=== PATIENT | female | born 1985 | race Caucasian/White ===

== ENCOUNTER 2019-10-08 06:22 | Observation (INO) | payer OTHER ==
[2019-10-08 07:55] VITALS: BP 120/76; PULSE 81
--- NOTE | 2019-10-08 09:25 | XRAY ---
Indication: Evaluate JAMIN. Limited OB ultrasound demonstrates a single viable intrauterine in cephalic presentation with heart rate 144 BPM. Four-quadrant JAMIN is 15.6 cm, previously 11.1 cm on September 20, 2019.
== END 2019-10-08 08:20 | disposition home or self-care (01) ==
LOC: OB 06:22
PROVIDERS: ADMIT Family Medicine; ATTEND Family Medicine
DX: Z34.83 Encounter for supervision of other normal pregnancy, third trimester (principal)
CPT/HCPCS: 59025; 76815; G0378

== ENCOUNTER 2019-10-11 15:18 | Observation (INO) | payer OTHER ==
[2019-10-11 16:03] VITALS: BP 133/76; PULSE 86; O2SAT 96
== END 2019-10-11 16:10 | disposition home or self-care (01) ==
LOC: OB 15:18
PROVIDERS: ADMIT Family Medicine; ATTEND Family Medicine
DX: Z34.83 Encounter for supervision of other normal pregnancy, third trimester (principal)
CPT/HCPCS: 59025; G0378

== ENCOUNTER 2019-10-15 06:39 | Observation (INO) | payer OTHER ==
[2019-10-15 07:57] VITALS: BP 132/79; PULSE 73; O2SAT 95
--- NOTE | 2019-10-15 09:16 | XRAY ---
Indication: Evaluate JAMIN. Limited OB ultrasound demonstrates single viable intrauterine with heart rates 124 BPM. Four-quadrant JAMIN is 11.7 cm, previously 15.6 cm on October 08, 2019.
== END 2019-10-15 08:30 | disposition home or self-care (01) ==
LOC: OB 06:39
PROVIDERS: ADMIT Family Medicine; ATTEND Family Medicine
DX: Z34.83 Encounter for supervision of other normal pregnancy, third trimester (principal)
CPT/HCPCS: 59025; 76815; G0378

== ENCOUNTER 2019-10-19 09:06 | Observation (INO) | payer OTHER ==
[2019-10-19 10:02] VITALS: BP 125/78; PULSE 77
== END 2019-10-19 09:50 | disposition home or self-care (01) ==
LOC: OB 09:06
PROVIDERS: ADMIT Family Medicine; ATTEND Family Medicine
DX: Z34.83 Encounter for supervision of other normal pregnancy, third trimester (principal)
CPT/HCPCS: 59025; G0378

== ENCOUNTER 2019-10-22 06:42 | Observation (INO) | payer OTHER ==
[2019-10-22 08:02] VITALS: BP 131/80; PULSE 84
--- NOTE | 2019-10-22 09:26 | XRAY ---
Indication: Evaluate JAMIN. Limited OB ultrasound demonstrates single viable intrauterine with heart rate 150 bpm. Four-quadrant JAMIN is 15.3 cm, previously 11.7 cm on October 15, 2019.
== END 2019-10-22 08:15 | disposition home or self-care (01) ==
LOC: OB 06:42
PROVIDERS: ADMIT Family Medicine; ATTEND Family Medicine
DX: Z34.83 Encounter for supervision of other normal pregnancy, third trimester (principal)
CPT/HCPCS: 59025; 76815; G0378

== ENCOUNTER 2019-10-24 16:06 | Observation (INO) | payer OTHER ==
[2019-10-24 16:31] VITALS: PULSE 96
[2019-10-24 17:19] VITALS: BP 127/79
== END 2019-10-24 16:55 | disposition home or self-care (01) ==
LOC: OB 16:06
PROVIDERS: ADMIT Family Medicine; ATTEND Family Medicine
DX: Z34.83 Encounter for supervision of other normal pregnancy, third trimester (principal)
CPT/HCPCS: 59025; G0378

== ENCOUNTER 2019-10-27 13:48 | Observation (INO) | payer OTHER ==
[2019-10-27 14:34] VITALS: PULSE 76
[2019-10-27 15:25] LABS: ALBUMIN 3.5 g/dL (3.5-5.0); ALKALINE PHOSPHATASE 101 U/L (38-126); ANION GAP 10.6 MEQ/L (5-15); Absolute Neutrophil Ct (ANC) 7.83 (1.4-6.9); BLOOD UREA NITROGEN 10 mg/dL (7-17); Basophil (Absolute #) 0 (0-0.4); CHLORIDE 110 mmol/L (98-107); Calcium 9.2 mg/dL (8.4-10.2); Carbon Dioxide 18 mmol/L (22-30); Creatinine 1 0.51 mg/dL (0.52-1.04); Eosinophil % 0.5 % (0.00-5.0); Eosinophil (Absolute #) 0.05 (0-0.5); Glucose 96 mg/dL (74-106); Hemoglobin 11.7 gm/dl (12.0-16.0); Lymphocyte (Absolute #) 1.76 (1.0-4.6); Lymphocytes % 17.1 % (24.0-44.0); Mean Cell Volume 91.4 fl (78-100); Mean Corpuscular Hemoglobin 30.5 pg (26-32); Mean Corpuscular Hgb Concent. 33.4 g/dl (32-36); Mean Platelet Volume 9.2 fl (7.5-11.0); Monocyte (Absolute #) 0.68 (0.0-1.3); Monocytes % 6.6 % (0.0-12.0); Neutrophil % 75.8 % (36.0-66.0); Platelet Count 274 K/mm3 (150-450); Potassium 3.8 mmol/L (3.5-5.1); Red Blood Count 3.83 M/mm3 (4.1-5.4); Red Cell Distribution Width 13.3 % (11.5-14.0); SGOT/AST 21 U/L (14-36); SGPT/ALT 15 U/L (0-35); SODIUM 135 mmol/L (137-145); Total Protein 6.5 g/dL (6.3-8.2); White Blood Count 10.3 K/mm3 (4.0-10.5)
[2019-10-27 15:31] LABS: Appearance SLIGHTLY CLOUDY (CLEAR); Bacteria RARE /HPF (NEGATIVE); Bilirubin NEGATIVE (NEGATIVE); Blood NEGATIVE Ery/ul (0-5); Epithelial Cells RARE /HPF (FEW); Glucose NEGATIVE (NEGATIVE); Ketones NEGATIVE (NEGATIVE); Leukocyte Esterase SMALL (NEGATIVE); Mucus SLIGHT /HPF (NEGATIVE); Nitrite NEGATIVE (NEGATIVE); Protein,Urine Dip NEGATIVE (Negative); Specific Gravity 1.019 (1.005-1.025); Urobilinogen 4 mg/dL (0-1)
[2019-10-27 15:34] LABS: Creatinine, Urine Random 114.2 mg/dl (30-125)
== END 2019-10-27 16:00 | disposition home or self-care (01) ==
LOC: OB 13:48
PROVIDERS: ADMIT Family Medicine; ATTEND Family Medicine
DX: Z34.83 Encounter for supervision of other normal pregnancy, third trimester (principal)
CPT/HCPCS: 36415; 59025; 80053; 81001; 82570; 84156; 85025; G0378

== ENCOUNTER 2019-10-29 06:56 | Observation (INO) | payer OTHER ==
[2019-10-29 07:50] VITALS: O2SAT 99
[2019-10-29 08:14] VITALS: BP 127/78; PULSE 82
--- NOTE | 2019-10-29 09:15 | XRAY ---
Indication: Evaluate JAMIN. Limited OB ultrasound demonstrates single viable intrauterine with heart rate 140 BPM. Four-quadrant JAMIN is 19.4 cm, previously 15.3 cm on October 22, 2019.
== END 2019-10-29 08:00 | disposition home or self-care (01) ==
LOC: OB 06:56
PROVIDERS: ADMIT Family Medicine; ATTEND Family Medicine
DX: Z34.83 Encounter for supervision of other normal pregnancy, third trimester (principal)
CPT/HCPCS: 59025; 76816; G0378

== ENCOUNTER 2019-10-31 16:52 | Observation (INO) | payer OTHER ==
[2019-10-31 18:54] VITALS: BP 133/82; PULSE 84; O2SAT 96
== END 2019-10-31 17:50 | disposition home or self-care (01) ==
LOC: OB 16:52
PROVIDERS: ADMIT Family Medicine; ATTEND Family Medicine
DX: Z34.83 Encounter for supervision of other normal pregnancy, third trimester (principal)
CPT/HCPCS: 59025; G0378

== ENCOUNTER 2019-11-05 06:20 | Observation (INO) | payer OTHER ==
--- NOTE | 2019-11-05 08:14 | XRAY ---
Exam: Limited OB ultrasound follow-up for JAMIN check from 11/05/2019. Comparison: Limited OB ultrasound from 10/29/2019. Indication: Evaluate JAMIN. Findings: Limited OB ultrasound demonstrates a single live intrauterine fetus in the cephalic lie which demonstrates a heart rate of 138 bpm. 4 quadrant JAMIN is 21.96 cm, previously 19.4 cm on 10/29/2019. The 95th percentile for amniotic fluid index for a 36 week old fetus is 24.9 cm. Correlate clinically. Impression: 1. As above.
[2019-11-05 08:15] VITALS: BP 135/80; PULSE 79
== END 2019-11-05 08:05 | disposition home or self-care (01) ==
LOC: OB 06:20
PROVIDERS: ADMIT Family Medicine; ATTEND Family Medicine
DX: Z34.83 Encounter for supervision of other normal pregnancy, third trimester (principal)
CPT/HCPCS: 59025; 76815; G0378

== ENCOUNTER 2019-11-07 06:11 | Observation (INO) | payer OTHER ==
--- NOTE | 2019-11-07 15:04 | XRAY ---
Indication: High-risk . Two-dimensional OB ultrasound performed. Comparison: September 20, 2019. Again there is a single viable intrauterine in cephalic presentation. heart rate 176 BPM. Again anterior placenta without abruption/previa. BPD measures 9.34 cm corresponding to 38 weeks 0 days. HC measures 33.64 cm corresponding to 38 weeks 4 days. AC measures 35.02 cm corresponding to 38 weeks 6 days. FL measures 7.42 cm corresponding to 38 weeks 0 days. Estimated weight 7 lbs. 12 oz., +/-1 lb. 3 oz. Approximately 95th percentile. JAMIN is 13.7 cm. Impression: Again single viable intrauterine with mean gestational age 38 weeks 3 days. There has been progression in the . Fetus now measures 9 days larger with respect to the comparison exam and 13 days larger with respect to first exam April 09, 2019.
[2019-11-07 15:11] VITALS: BP 138/86; PULSE 87
== END 2019-11-07 15:40 | disposition home or self-care (01) ==
LOC: EDSTATUS 13:52 → OB 13:57
PROVIDERS: ADMIT Family Medicine; ATTEND Family Medicine
DX: O09.92 Supervision of high risk pregnancy, unspecified, second trimester (principal); Z3A.36 36 weeks gestation of pregnancy
CPT/HCPCS: 59025; 76816; 87081; G0378

== ENCOUNTER 2019-11-11 03:00 | Inpatient (IN) | payer OTHER ==
[2019-11-11] MEDS ORDERED: Cervidil 10 MG VAG SCH (18:00)
[2019-11-11] MEDS ORDERED: XYLOCAINE 1% HCL 20 ML MDV IJ PRN (20:11)
[2019-11-11] MEDS ORDERED: Zofran 4 MG/2 ML VIAL IV PRN (20:11)
[2019-11-11] MEDS ORDERED: TYLENOL EXTRA STRENGTH 500 MG PO PRN (20:11)
[2019-11-11] MEDS ORDERED: OB EPIDURAL NAROPIN/SUFENTANIL IN NACL EPIDURAL PRN (20:30)
[2019-11-11 20:31] LABS: Absolute Neutrophil Ct (ANC) 8.48 (1.4-6.9); BASOPHIL % 0.1 % (0.0-0.4); Basophil (Absolute #) 0.01 (0-0.4); Eosinophil % 0.4 % (0.00-5.0); Eosinophil (Absolute #) 0.05 (0-0.5); Hematocrit 34.1 % (35-47); Hemoglobin 11.6 gm/dl (12.0-16.0); Lymphocyte (Absolute #) 2.22 (1.0-4.6); Mean Cell Volume 90.5 fl (78-100); Mean Corpuscular Hemoglobin 30.8 pg (26-32); Mean Platelet Volume 9.8 fl (7.5-11.0); Monocyte (Absolute #) 0.92 (0.0-1.3); Monocytes % 7.9 % (0.0-12.0); Neutrophil % 72.6 % (36.0-66.0); Platelet Count 303 K/mm3 (150-450); Red Blood Count 3.77 M/mm3 (4.1-5.4); Red Cell Distribution Width 13.7 % (11.5-14.0); White Blood Count 11.7 K/mm3 (4.0-10.5)
[2019-11-11 21:37] LABS: ALBUMIN 3.5 g/dL (3.5-5.0); ALKALINE PHOSPHATASE 129 U/L (38-126); ANION GAP 11.8 MEQ/L (5-15); BLOOD UREA NITROGEN 9 mg/dL (7-17); CHLORIDE 108 mmol/L (98-107); Calcium 9.3 mg/dL (8.4-10.2); Carbon Dioxide 19 mmol/L (22-30); Creatinine 1 0.42 mg/dL (0.52-1.04); Glucose 93 mg/dL (74-106); Potassium 3.6 mmol/L (3.5-5.1); SGOT/AST 27 U/L (14-36); SGPT/ALT 16 U/L (0-35); SODIUM 136 mmol/L (137-145); Total Protein 6.6 g/dL (6.3-8.2); Uric Acid 5.2 mg/dL (2.6-6.0)
[2019-11-11 21:51] LABS: Amphetamine,Urine NEGATIVE (NEGATIVE); Barbiturate,Urine NEGATIVE (NEGATIVE); Benzodiazepine,Urine NEGATIVE (NEGATIVE); Cocaine,Urine NEGATIVE (NEGATIVE); Methadone,Urine NEGATIVE (NEGATIVE); Opiate,Urine NEGATIVE (NEGATIVE); PCP,Urine NEGATIVE (NEGATIVE); THC,Urine NEGATIVE (NEGATIVE)
[2019-11-12] MEDS ORDERED: Ephedrine Sulfate 50 MG/ML IV PRN (02:00)
[2019-11-12] MEDS ORDERED: Lactated Ringers 1,000 ML IV ONE (02:00)
[2019-11-12] MEDS ORDERED: SUBLIMAZE 100 MCG/2 ML ONE (04:00)
[2019-11-12] MEDS ORDERED: Marcaine Spinal Ampul IJ ONE (04:00)
[2019-11-12] MEDS ORDERED: Lactated Ringers 1,000 ML IV SCH (05:30)
[2019-11-12] MEDS ORDERED: PITOCIN 30 UNITS/ LR 500 ML 30 UNITS/500 ML IV.SOLN. IV SCH (05:30)
[2019-11-12 05:36] VITALS: O2SAT 97
[2019-11-12] MEDS ORDERED: Dermoplast Spray TP PRN (07:35)
[2019-11-12] MEDS ORDERED: CORTISONE 1% CREAM TP PRN (07:35)
[2019-11-12] MEDS ORDERED: Mylicon 80MG PO PRN (07:35)
[2019-11-12] MEDS ORDERED: Dulcolax 10 MG SUPP PR PRN (07:35)
[2019-11-12] MEDS ORDERED: TUCKS TP PRN (07:35)
[2019-11-12] MEDS ORDERED: Ambien 10 MG PO PRN (07:35)
[2019-11-12] MEDS ORDERED: LANSINOH 40 GM TOP PRN (07:35)
[2019-11-12] MEDS ORDERED: Anucort-HC SUPPOSITORY PR PRN (07:35)
[2019-11-12] MEDS ORDERED: Hemabate IM ONE (07:50)
[2019-11-12] MEDS ORDERED: Cleocin Phosphate IV 600 MG/4 ML IV SCH (08:00)
[2019-11-12] MEDS: CLINDAMYCIN-D5W 600 MG/50 ML*** 600 MG/50 ML BAG IV SCH ×3 (08:15→20:16)
[2019-11-12] MEDS: NORCO 5/325 MG PO PRN ×3 (08:56→23:32)
[2019-11-12 12:23] LABS: Absolute Neutrophil Ct (ANC) 15.69 (1.4-6.9); BASOPHIL % 0.1 % (0.0-0.4); Basophil (Absolute #) 0.01 (0-0.4); Eosinophil % 0.2 % (0.00-5.0); Eosinophil (Absolute #) 0.04 (0-0.5); Hematocrit 33.2 % (35-47); Hemoglobin 11.1 gm/dl (12.0-16.0); Lymphocyte (Absolute #) 1.93 (1.0-4.6); Lymphocytes % 10.1 % (24.0-44.0); Mean Cell Volume 91.7 fl (78-100); Mean Corpuscular Hemoglobin 30.7 pg (26-32); Mean Corpuscular Hgb Concent. 33.4 g/dl (32-36); Mean Platelet Volume 9.3 fl (7.5-11.0); Monocyte (Absolute #) 1.43 (0.0-1.3); Monocytes % 7.5 % (0.0-12.0); Neutrophil % 82.1 % (36.0-66.0); Platelet Count 269 K/mm3 (150-450); Red Blood Count 3.62 M/mm3 (4.1-5.4); Red Cell Distribution Width 13.8 % (11.5-14.0); White Blood Count 19.1 K/mm3 (4.0-10.5)
[2019-11-12] MEDS: MOTRIN 400 MG PO PRN (17:01)
[2019-11-12] MEDS: Colace 100 MG PO SCH ×2 (20:00→21:47)
[2019-11-13] MEDS: CLINDAMYCIN-D5W 600 MG/50 ML*** 600 MG/50 ML BAG IV SCH (02:38)
[2019-11-13] MEDS: MOTRIN 400 MG PO PRN (04:12)
[2019-11-13 05:16] LABS: Absolute Neutrophil Ct (ANC) 8.17 (1.4-6.9); BASOPHIL % 0.2 % (0.0-0.4); Basophil (Absolute #) 0.02 (0-0.4); Eosinophil (Absolute #) 0.13 (0-0.5); Hematocrit 29.5 % (35-47); Hemoglobin 9.7 gm/dl (12.0-16.0); Lymphocyte (Absolute #) 3.36 (1.0-4.6); Lymphocytes % 26.5 % (24.0-44.0); Mean Cell Volume 92.8 fl (78-100); Mean Corpuscular Hemoglobin 30.5 pg (26-32); Mean Corpuscular Hgb Concent. 32.9 g/dl (32-36); Mean Platelet Volume 9.4 fl (7.5-11.0); Monocytes % 7.9 % (0.0-12.0); Neutrophil % 64.4 % (36.0-66.0); Platelet Count 255 K/mm3 (150-450); Red Blood Count 3.18 M/mm3 (4.1-5.4); Red Cell Distribution Width 13.9 % (11.5-14.0); White Blood Count 12.7 K/mm3 (4.0-10.5)
--- NOTE | 2019-11-13 07:41 | PCM.DS ---
Discharge Summary Date of Admission: 11/12/19 03:00 Admitting Physician: FARZANA FOWLER Consults: Consults on Case 11/11/19 20:34 Notify Anesthesia Provider PRN Primary Care Provider: FARZANA FOWLER Allergies Allergies Penicillins Allergy (Unknown, Verified 11/07/19 15:34) Swelling Hospital Summary - Hospital Course Hospital Course: Pt admitted as 34 yo at 37 weeks for IOL due to uncontrolled GDM. Pt delivered 7lb 3oz female over intact perineum; apgars 9 at 1 min and 9 at 5 min. Placenta had to be manually removed by me and was questionable whether it was intact; she received IV clindamycin x 24 h post . Had some PPH requiring 1 dose of hemabate, after which the bleeding decreased. Bleeding is now wnl. Yessy po. . No dizziness. Hgb this morning 9.7. 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 She will watch for any fever or signs of infection. RTC 4-6 weeks. Will do a1c in 3 months. - Vitals & Intake/Output Vital Signs: Vital Signs Temperature 97.8 F 11/13/19 03:00 Pulse Rate 75 11/13/19 03:00 Respiratory Rate 18 11/13/19 03:00 Blood Pressure 117/63 11/13/19 03:00 O2 Sat by Pulse Oximetry 97 11/12/19 06:00 Intake & Output: Intake & Output 11/10/19 11/11/19 11/12/19 11/13/19 11:59 11:59 11:59 11:59 Intake Total 999 2600 Output Total 1600 Balance -601 2600 Weight 109.769 kg - Lab Result Diagrams: 11/13/19 05:22 11/11/19 21:23 Lab Results-Last 24 Hrs: Lab Results-Last 24 Hours 11/12/19 11/13/19 Range/Units 11:51 05:22 WBC 19.1 H 12.7 H (4.0-10.5) K/mm3 RBC 3.62 L 3.18 L (4.1-5.4) M/mm3 Hgb 11.1 L 9.7 L (12.0-16.0) gm/dl Hct 33.2 L 29.5 L (35-47) % MCV 91.7 92.8 (78-100) fl MCH 30.7 30.5 (26-32) pg MCHC 33.4 32.9 (32-36) g/dl RDW 13.8 13.9 (11.5-14.0) % Plt Count 269 255 (150-450) K/mm3 MPV 9.3 9.4 (7.5-11.0) fl Gran % 82.1 H 64.4 (36.0-66.0) % Eos # (Auto) 0.04 0.13 (0-0.5) Absolute Lymphs (auto) 1.93 3.36 (1.0-4.6) Absolute Monos (auto) 1.43 H 1.00 (0.0-1.3) Lymphocytes % 10.1 L 26.5 (24.0-44.0) % Monocytes % 7.5 7.9 (0.0-12.0) % Eosinophils % 0.2 1.0 (0.00-5.0) % Basophils % 0.1 0.2 (0.0-0.4) % Absolute Granulocytes 15.69 H 8.17 H (1.4-6.9) Basophils # 0.01 0.02 (0-0.4) Discharge Exam General Appearance: no apparent distress, alert Neurologic Exam: oriented x 3, cooperative Eye Exam: eyes nml inspection Ears, Nose, Throat Exam: moist mucous membranes Neck Exam: normal inspection Respiratory Exam: normal breath sounds, lungs clear, No crackles/rales, No rhonchi, No wheezing Cardiovascular Exam: regular rate/rhythm, normal heart sounds, No murmur Gastrointestinal/Abdomen Exam: soft, normal bowel sounds, other (fundus firm inferior to umbilicus), No tenderness, No distention, No guarding, No rebound Extremity Exam: swelling (trace pretibial edema bilat), No tenderness Skin Exam: normal color, warm, dry, No rash Final Diagnosis/Problem List - Final Discharge Diagnosis/Problem (1) Spontaneous vaginal delivery Current Visit: Yes Status: Acute Assessment & Plan: PPD #1, doing great, OK to discharge to home today. Code(s): O80 - ENCOUNTER FOR FULL-TERM UNCOMPLICATED DELIVERY (2) manual removal of the placenta Current Visit: Yes Status: Resolved Assessment & Plan: no sign of infection (3) Gestational diabetes mellitus Current Visit: Yes Status: Resolved Assessment & Plan: will check a1c in 3 mo Code(s): O24.419 - GESTATIONAL DIABETES MELLITUS IN , UNSP CONTROL - Discharge Disposition: Home, Self-Care Condition: Good Prescriptions: New Ibuprofen 800 mg PO TID PRN #35 tablet PRN Reason: Pain Continue Aspirin 81 gm Chew [Baby Aspirin 81 mg Chew] 81 mg PO DAILY Vits W-Ca,Fe,FA(<1Mg) [] 1 tablet PO DAILY Docusate Sodium 100 mg [Colace 100 MG] 200 mg PO DAILY Discontinued Metformin HCl 500 mg [Glucophage 500 MG] 500 mg PO BID Follow up with: FARZANA FOWLER [Primary Care Provider] - 1 Week
[2019-11-13] MEDS: NORCO 5/325 MG PO PRN (11:12)
[2019-11-13] MEDS: Colace 100 MG PO SCH (11:14)
[2019-11-13 12:46] VITALS: BP 120/69; PULSE 89
== END 2019-11-13 13:25 | disposition home or self-care (01) | DRG 807 ==
LOC: OB 03:00 → OBSVTOIN 11-12 03:00
PROVIDERS: ADMIT Family Medicine; ATTEND Family Medicine
PROC: 10E0XZZ Delivery of Products of Conception, External Approach (ICD-10-PCS; principal; 2019-11-12)
PROC: 10D17Z9 Manual Extraction of Products of Conception, Retained, Via Natural or Artificial Opening (ICD-10-PCS; 2019-11-12)
DX: O24.425 Gestational diabetes mellitus in childbirth, controlled by oral hypoglycemic drugs (principal); Z37.0 Single live birth; Z3A.37 37 weeks gestation of pregnancy
CPT/HCPCS: 36415; 80053; 80307; 84550; 85025; 87086; 87340; 96372; G0378; J2590; J2795; J3010; A9270-GY